=== PATIENT | female | born 1960 | race Caucasian/White ===

== ENCOUNTER 2021-01-22 16:55 | Emergency (ER) | payer OTHER ==
[2021-01-22 18:17] LABS: HEMOGLOBIN 11.4 gm/dl (12.3-15.3); RED BLOOD COUNT 5.85 M/UL (4.00-5.10); WHITE BLOOD COUNT 10.4 K/UL (4.5-11.0)
[2021-01-22 18:43] LABS: BUN/CREATININE RATIO 29 (0-10)
[2021-01-22] MEDS ORDERED: ONDANSETRON ODT4 MG SL (21:24)
[2021-01-22] MEDS ORDERED: IBUPROFEN800 MG PO (21:24)
[2021-01-22] MEDS ORDERED: MECLIZINE HCL25 MG PO (21:24)
== END 2021-01-22 21:39 | disposition home or self-care (01) ==
LOC: ER1 16:55
PROVIDERS: Physician Assistant Medical
DX: S06.9X9A Unspecified intracranial injury with loss of consciousness of unspecified duration, initial encounter (principal); M54.2 Cervicalgia; E11.9 Type 2 diabetes mellitus without complications; K21.9 Gastro-esophageal reflux disease without esophagitis; Z79.84 Long term (current) use of oral hypoglycemic drugs; Z79.899 Other long term (current) drug therapy; Z88.5 Allergy status to narcotic agent; Z88.6 Allergy status to analgesic agent; W22.8XXA Striking against or struck by other objects, initial encounter
CPT/HCPCS: 70450; 71045; 72072; 72125; 80053; 81001; 82550; 82553; 83874; 84484; 85025; 93005; 96374; 99284